=== PATIENT | female | born 1995 | race Caucasian/White ===

== ENCOUNTER 2023-08-03 17:10 | Emergency (ER) | payer MEDICAID ==
[~2023-08-03] VITALS: Ht 157.5 cm; Wt 77.0 kg
[2023-08-03 17:21] VITALS: BP 111/68; RESP 18; TEMP 98.5; O2SAT 100
[2023-08-03 18:07] LABS: BASOPHILS % 0.6 % (0.0-2.0); CHLORIDE 104 mEq/L (98-107); EOSINOPHILS % 1.9 % (0.0-5.0); HEMATOCRIT. 40.4 % (36.0-48.0); HEMOGLOBIN. 13.7 g/dL (12.0-16.0); LYMPHOCYTES % 15.8 % (20.0-50.0); MEAN CORPUSCULAR VOLUME 85.3 fL (81.0-99.0); MEAN PLATELET VOLUME 8.4 fl (7.4-10.4); MONOCYTES % 4.6 % (2.0-8.0); NEUTROPHILS % 77.1 % (40.0-76.0); PLATELET 251 x1000/uL (130-400); POTASSIUM 3.3 mEq/L (3.5-5.1); RED BLOOD CELL COUNT 4.73 mill/uL (4.2-5.4); RED CELL DISTRIBUTION WIDTH 13.7 % (11.6-14.6); SODIUM 141 mEq/L (136-145); WHITE BLOOD COUNT 10.3 x1000/uL (4.5-11.0)
[2023-08-03 18:08] LABS: CALCIUM 9.9 mg/dL (8.7-10.4); CARBON DIOXIDE 28 mEq/L (21-32)
[2023-08-03 18:13] LABS: CREATININE 0.7 mg/dL (0.6-1.0); GLUCOSE 93 mg/dL (70-105); UREA NITROGEN BLOOD 10 mg/dL (9-23)
[2023-08-03 18:14] LABS: TROPONIN I HIGH SENSITIVITY < 4 ng/L (3.0-34)
[2023-08-03 18:15] LABS: ALANINE AMINOTRANSFERASE 36 IU/L (10-49); ALBUMIN 5.1 g/dL (3.2-4.8); ASPARTATE AMINOTRANSFERASE 23 IU/L (<34); BILIRUBIN DIRECT 0.2 mg/dL (<=3.0); BILIRUBIN TOTAL 0.5 mg/dL (0.1-1.0); PROTEIN TOTAL 8.3 g/dL (6.0-8.3)
[2023-08-03 19:03] LABS: HCG SCREEN NEGATIVE
[2023-08-03 20:39] VITALS: PULSE 98
[2023-08-03] MEDS: KETOROLAC 30MG/ML VIAL IV ONE (20:39)
[2023-08-03] MEDS: ONDANSETRON HCL 4MG/2ML INJ IV ONE (20:40)
== END 2023-08-03 21:35 | disposition left against medical advice (07) ==
LOC: ER 17:10
DX: R10.13 Epigastric pain (principal); Z98.890 Other specified postprocedural states
CPT/HCPCS: 99285; 96374; 76705; 71045; 96375; 80076; 80048; 84703; 85025; 84484; 36415; 93005; J1885; J2405